=== PATIENT | male | born 1980 | race Caucasian/White ===

== ENCOUNTER 2019-10-19 19:50 | Emergency (ER) | payer SELFPAY ==
[~2019-10-19] VITALS: Ht 172.7 cm; Wt 86.2 kg
[2019-10-19 20:26] VITALS: Ht 172.7 cm; Wt 86.2 kg
[2019-10-19 20:43] VITALS: BP 129/77
== END 2019-10-19 20:43 | disposition home or self-care (01) ==
LOC: ED 19:50
DX: U07.1 COVID-19 (principal); B34.9 Viral infection, unspecified
CPT/HCPCS: U0003-CS